=== PATIENT | female | born 1985 ===

== ENCOUNTER → 2023-11-05 | Outpatient (CLI) | payer OTHER | LOC: MHCPAIN 14:14 | DX: M47.896 Other spondylosis, lumbar region (principal); M54.16 Radiculopathy, lumbar region | CPT/HCPCS: G0463 ==

== ENCOUNTER → 2024-04-02 | Outpatient (CLI) | payer OTHER | LOC: MHCPAIN 09:35 | DX: M54.16 Radiculopathy, lumbar region (principal) ==